=== PATIENT | female | born 1985 | race Caucasian/White ===

== ENCOUNTER → 2018-09-06 | Emergency (ER) | payer OTHER ==
[~2018-09-06] VITALS: Ht 157.5 cm; Wt 83.9 kg
[~2018-09-06] MED LIST: ACET1TAB43 PO; ACHD5005 PO; APNO TOP; DOCU100C37 PO; FERR325T18 PO; HYDR-34 PO; Ibuprofen PO; METO10TA3 PO; NF-ESOM40C PO; NFR150C PO; NITR-65 PO; PREN1TAB71 PO; PRM25T PO; RNT150T PO; SCR1T1 PO; SUCR1TAB PO
--- NOTE | 2018-09-06 14:15 | ED Lower Extremity ---
General Chief Complaint: Lower Extremity Stated Complaint: R CALF INJ Nursing Triage Note: pt presents to ed with complaints of r calf pain since injurying it yesterday at the [facility]. Pt reports hse has tried ice and elevation without relief. Nursing Sepsis Screen: No Definite Risk Source: patient Exam Limitations: no limitations History of Present Illness Date Seen by Provider: Sep 06, 2018 Time Seen by Provider: 14:10 Initial Comments To ER with reports of right calf pain since she injured it yesterday. She pushed off with the right foot to jump into a foam pit for her son's birthday green party. She initially felt a weird sensation and when she landed she had more discomfort, she thought maybe a charley horse. She has been able to walk but the pain intensifies when she pushes off with the right foot. She has run several half marathons and is training for a full marathon. She was seen at urgent care today who suggested the possibility of either a blood clot or compartment syndrome and referred her to the emergency room. She has no history of DVT, she has no exogenous estrogen use, she is very active and this pain occurred abruptly with injury, she is a nonsmoker. Onset: yesterday Severity: moderate Pain/Injury Location: right other (CALF) Method of Injury: other Modifying Factors: Improves With Movement Allergies and Home Medications Allergies Uncoded Allergies: BEE STINGS (Allergy, Severe, ANAPHYLACTIC, 07/05/10) Home Medications Acetaminophen with Codeine 1 Each Tablet, 1-2 TAB PO Q4H PRN for MODERATE TO SEVERE PAIN Prescribed by: VIRGILIO GUILLEN on 09/06/15 0853 Docusate Sodium 100 Mg Capsule, 100 MG PO BID Prescribed by: VIRGILIO GUILLEN on 09/06/15 0853 Ferrous Sulfate 325 Mg Tablet, 325 MG PO DAILY Prescribed by: VIRGILIO GUILLEN on 09/06/15 0853 Vit/Fe Fumarate/Fa 1 Each Tablet, 1 EACH PO DAILY, (Reported) Patient Home Medication List Home Medication List Reviewed: Yes Review of Systems Constitutional: see HPI EENTM: see HPI Respiratory: no symptoms reported Cardiovascular: no symptoms reported Genitourinary: no symptoms reported Musculoskeletal: see HPI Skin: no symptoms reported Past Ibmnyfo-Luegzs-Yhgubk Hx Patient Social History Alcohol Use: Denies Use Recreational Drug Use: No Smoking Status: Never a Smoker Recent Foreign Travel: No Contact w/Someone Who Travel: No Recent Infectious Disease Expo: No Physical Abuse: No Sexual Abuse: No Mistreated: No Fear: No Immunizations Up To Date Tetanus Booster (TDap): Less than 5yrs PED Vaccines UTD: No Date of Influenza Vaccine: May 04, 2015 Past Medical History Surgeries: No Respiratory: No Cardiac: No Neurological: Yes Reproductive Disorders: No Gastrointestinal: Yes Ulcer Musculoskeletal: No Endocrine: No Cancer: No Psychosocial: No Integumentary: No Blood Disorders: No Family Medical History Alcoholism 19 FATHER 19 MOTHER, Diabetes mellitus 19 MOTHER, (MGM) FH: lung cancer FHx: lung cancer Hypercholesterolemia 19 FATHER (father) Hypertension 19 FATHER (father) Lung c 19 MOTHER, No Family History of: AIDS Abdominal aortic aneurysm [place]'s disease Alzheimer's disease Aphasia Arthritis Asthma Cancer of mouth Cardiovascular disease Cataracts Colon cancer Completed stroke Congenital disease Congenital heart disease Coronary thrombosis Cystic fibrosis Deafness or hearing loss Dementia Drug abuse Dysphasia Fibrocystic disease of breast Gastroenteritis Glaucoma Headache disorder Infertility Kidney disease Myocardial infarction Neoplasm Not obtainable due to adoption Osteoporosis Parkinson's disease Prostate cancer Psychosocial problem Respiratory disorder Seizure disorder Severe allergy Thyroid disease Tuberculosis Visual disorder Cancer, Diabetes, Vascular Disease Physical Exam Vital Signs Vital Signs - First Documented 09/06/18 13:50 Temp 98.9 Pulse 70 Resp 16 B/P (MAP) 120/81 (94) Pulse Ox 99 Capillary Refill : Less Than 3 Seconds Height, Weight, BMI Height: 5'2.00" Weight: 185lbs. 2.0oz. [id number]; BMI Method:Stated General Appearance: WD/WN, no apparent distress HEENT: PERRL/EOMI, normal ENT inspection Neck: non-tender, full range of motion Respiratory: no respiratory distress, no accessory muscle use Gastrointestinal: normal bowel sounds, non tender Hips: bilateral hip non-tender, bilateral hip normal inspection, bilateral hip normal range of motion Legs: right leg other (there is tenderness and a firm palpable nodule to the MID posterior right calf. No ecchymosis. She is able to fully actively and passively dorsiflex and plantar flex the foot. She has strong dorsalis pedis pulse and no tingling or paresthesia of the foot. The pain increased with passive dorsiflexion is minimal. I do not suspect deep vein thrombosis given the mechanism of this injury nor do I suspect compartment syndrome based on clinical exam.) Knees: bilateral knee non-tender, bilateral knee normal inspection, bilateral knee normal range of motion Ankles: bilateral ankle non-tender, bilateral ankle normal inspection, bilateral ankle normal range of motion Feet: bilateral foot non-tender, bilateral foot normal inspection, bilateral foot normal range of motion Neurologic/Psychiatric: alert, normal mood/affect, oriented x 3 Skin: normal color, warm/dry Progress/Results/Core Measures Results/Orders Vital Signs/I&O 09/06/18 09/06/18 13:50 14:22 Temp 98.9 Pulse 70 87 Resp 16 16 B/P (MAP) 120/81 (94) 123/87 (99) Pulse Ox 99 98 Blood Pressure Mean: 94 Departure Communication (Admissions) I'll give her a walking boot to wear for 2 weeks, she may continue to stretch and do yoga as tolerated and she should stop for any significant pain. He agrees with this plan Impression Primary Impression: Gastrocnemius muscle tear Qualified Codes: S86.111A - Strain of other muscle(s) and tendon(s) of posterior muscle group at lower leg level, right leg, initial encounter Disposition: HOME, SELF-CARE Condition: Improved Departure-Patient Inst. Decision time for Depature: 14:14 Referrals: [facility] [place] (PCP) Primary Care Physician CLINTON BREWSTER DO (Family) Primary Care Physician Patient Instructions: Lower Extremity Muscle Strain Add. Discharge Instructions: 1. Ice to the area, Tylenol as needed for pain, elevate, you may continue to stretch and as long as this does not cause significant pain. The pain be her guide and an activity causes pain then stop. Wear the walking boot when you are up and about for about 2 weeks. Follow-up with your doctor later this week for recheck to ensure improvement. All discharge instructions reviewed with patient and/or family. Voiced understanding. CLARK PRICE APRN Sep 06, 2018 14:15
[2018-09-06 14:22] VITALS: BP 123/87
== END | disposition home or self-care (01) ==
LOC: EDUNIT# 13:21 → ER 13:23
DX: S86.111A Strain of other muscle(s) and tendon(s) of posterior muscle group at lower leg level, right leg, initial encounter (principal); Z80.1 Family history of malignant neoplasm of trachea, bronchus and lung; Z82.49 Family history of ischemic heart disease and other diseases of the circulatory system; Z87.19 Personal history of other diseases of the digestive system; W17.89XA Other fall from one level to another, initial encounter
CPT/HCPCS: 99283

== ENCOUNTER 2020-05-14 10:03 | Emergency (ER) | payer OTHER ==
[~2020-05-14] VITALS: Ht 157.4 cm; Wt 79.3 kg
--- NOTE | 2020-05-14 12:45 | ED General ---
General Stated Complaint: RECTAL BLEEDING Source of Information: Patient Exam Limitations: No Limitations History of Present Illness Date Seen by Provider: May 14, 2020 Time Seen by Provider: 12:40 Initial Comments This is a healthy-appearing 35-year-old female who presents to the ER with scant rectal bleeding after running this morning. States she has been having dark tarry stools over the past 2 days since she ate spicy food on Friday evening. States she has taken Pepto-Bismol and Tums Friday evening and this morning for GI discomfort, which did provide some improvement. Has a history of stomach ulcer 2 years ago and was treated successfully with Protonix. Denies fever, chills, headache, cough, nausea, vomiting, shortness of breath, diarrhea or constipation. Timing/Duration: 1-2 Days Severity: Mild Allergies and Home Medications Allergies Uncoded Allergies: BEE STINGS (Allergy, Severe, ANAPHYLACTIC, 07/05/10) Home Medications Acetaminophen with Codeine 1 Each Tablet, 1-2 TAB PO Q4H PRN for MODERATE TO SEVERE PAIN Prescribed by: VIRGILIO GUILLEN on 09/06/15 0853 Docusate Sodium 100 Mg Capsule, 100 MG PO BID Prescribed by: VIRGILIO GUILLEN on 09/06/15 0853 Ferrous Sulfate 325 Mg Tablet, 325 MG PO DAILY Prescribed by: VIRGILIO GUILLEN on 09/06/15 0853 Pantoprazole Sodium 20 Mg Tablet.dr, 20 MG PO DAILY Prescribed by: BRITTNI BAUER on 05/14/20 1332 Vit/Fe Fumarate/Fa 1 Each Tablet, 1 EACH PO DAILY, (Reported) Patient Home Medication List Home Medication List Reviewed: Yes Review of Systems Review of Systems Constitutional: no symptoms reported EENTM: no symptoms reported Respiratory: no symptoms reported Cardiovascular: no symptoms reported Gastrointestinal: see HPI Genitourinary: no symptoms reported Musculoskeletal: no symptoms reported Skin: no symptoms reported Psychiatric/Neurological: No Symptoms Reported Hematologic/Lymphatic: No Symptoms Reported Immunological/Allergic: no symptoms reported Past Hesaxgd-Uslyyf-Ricsck Hx Patient Social History Recent Foreign Travel: No Contact w/Someone Who Travel: No Immunizations Up To Date Tetanus Booster (TDap): Less than 5yrs PED Vaccines UTD: No Date of Influenza Vaccine: May 04, 2015 Past Medical History Surgeries: No Respiratory: No Cardiac: No Neurological: Yes Reproductive Disorders: No Gastrointestinal: Yes Ulcer Musculoskeletal: No Endocrine: No Cancer: No Psychosocial: No Integumentary: No Blood Disorders: No Family Medical History Alcoholism 19 FATHER 19 MOTHER, Diabetes mellitus 19 MOTHER, (MGM) FH: lung cancer FHx: lung cancer Hypercholesterolemia 19 FATHER (father) Hypertension 19 FATHER (father) Lung c 19 MOTHER, No Family History of: AIDS Abdominal aortic aneurysm [place]'s disease Alzheimer's disease Aphasia Arthritis Asthma Cancer of mouth Cardiovascular disease Cataracts Colon cancer Completed stroke Congenital disease Congenital heart disease Coronary thrombosis Cystic fibrosis Deafness or hearing loss Dementia Drug abuse Dysphasia Fibrocystic disease of breast Gastroenteritis Glaucoma Headache disorder Infertility Kidney disease Myocardial infarction Neoplasm Not obtainable due to adoption Osteoporosis Parkinson's disease Prostate cancer Psychosocial problem Respiratory disorder Seizure disorder Severe allergy Thyroid disease Tuberculosis Visual disorder Cancer, Diabetes, Vascular Disease Physical Exam Vital Signs Vital Signs - First Documented 05/14/20 12:14 Temp 37.1 Pulse 80 Resp 18 B/P (MAP) 130/98 (109) Pulse Ox 100 O2 Delivery Room Air Capillary Refill : Height, Weight, BMI Height: 5'2.00" Weight: 185lbs. 2.0oz. 83.037697tq; BMI Method:Stated General Appearance: No Apparent Distress, WD/WN HEENT: PERRL/EOMI, Pharynx Normal Neck: Full Range of Motion, Normal Inspection Respiratory: Chest Non Tender, Lungs Clear, Normal Breath Sounds, No Accessory Muscle Use Cardiovascular: Regular Rate, Rhythm, No Murmur, Normal Peripheral Pulses Gastrointestinal: Normal Bowel Sounds, Non Tender, Soft Rectal: Normal Rectal Tone, Heme Positive Stool, Hemorrhoids (Internal); No Tenderness Extremity: Normal Capillary Refill, Normal Range of Motion Neurologic/Psychiatric: Alert, Oriented x3, Normal Mood/Affect Skin: Normal Color, Warm/Dry Progress/Results/Core Measures Suspected Sepsis SIRS Temperature: Pulse: Respiratory Rate: Laboratory Tests 05/14/20 12:45: White Blood Count 10.7 Blood Pressure / Mean: Laboratory Tests 05/14/20 12:45: Creatinine 0.81, Platelet Count 291, Total Bilirubin 0.5 Results/Orders Lab Results Laboratory Tests Test 05/14/20 12:45 Range/Units White Blood Count 10.7 4.3-11.0 10^3/uL Red Blood Count 4.90 4.35-5.85 10^6/uL Hemoglobin 14.4 11.5-16.0 G/DL Hematocrit 42 35-52 % Mean Corpuscular Volume 86 80-99 FL Mean Corpuscular Hemoglobin 29 25-34 PG Mean Corpuscular Hemoglobin Concent 34 32-36 G/DL Red Cell Distribution Width 12.4 10.0-14.5 % Platelet Count 291 130-400 10^3/uL Mean Platelet Volume 11.1 H 7.4-10.4 FL Neutrophils (%) (Auto) 70 42-75 % Lymphocytes (%) (Auto) 23 12-44 % Monocytes (%) (Auto) 6 0-12 % Eosinophils (%) (Auto) 2 0-10 % Basophils (%) (Auto) 0 0-10 % Neutrophils # (Auto) 7.5 1.8-7.8 X 10^3 Lymphocytes # (Auto) 2.5 1.0-4.0 X 10^3 Monocytes # (Auto) 0.6 0.0-1.0 X 10^3 Eosinophils # (Auto) 0.2 0.0-0.3 10^3/uL Basophils # (Auto) 0.0 0.0-0.1 10^3/uL Sodium Level 138 135-145 MMOL/L Potassium Level 3.9 3.6-5.0 MMOL/L Chloride Level 105 98-107 MMOL/L Carbon Dioxide Level 22 21-32 MMOL/L Anion Gap 11 5-14 MMOL/L Blood Urea Nitrogen 11 7-18 MG/DL Creatinine 0.81 0.60-1.30 MG/DL Estimat Glomerular Filtration Rate > 60 BUN/Creatinine Ratio 14 Glucose Level 88 70-105 MG/DL Calcium Level 9.9 8.5-10.1 MG/DL Corrected Calcium 8.5-10.1 MG/DL Total Bilirubin 0.5 0.1-1.0 MG/DL Aspartate Amino Transf (AST/SGOT) 24 5-34 U/L Alanine Aminotransferase (ALT/SGPT) 18 0-55 U/L Alkaline Phosphatase 51 40-136 U/L Total Protein 8.0 6.4-8.2 GM/DL Albumin 4.8 H 3.2-4.5 GM/DL My Orders Orders - BRITTNI BAUER APRN Cbc With Automated Diff (05/14/20 12:13) Fecal Occult Bedside (05/14/20 12:13) Comprehensive Metabolic Panel (05/14/20 13:00) Vital Signs/I&O 05/14/20 05/14/20 12:14 13:37 Temp 37.1 37.1 Pulse 80 80 Resp 18 18 B/P (MAP) 130/98 (109) 130/98 (109) Pulse Ox 100 100 O2 Delivery Room Air Room Air Capillary Refill : Progress Note : Progress Note Labs reviewed and are unremarkable. Black stools are likely from Pepto-Bismol use. I did discuss having her keep an eye on this and to stop taking Pepto- Bismol. On digital rectal exam I did note internal hemorrhoid. This is likely the cause of her recent leonor blood. I discussed trying Protonix and to follow up with her PCP if symptoms persist after diet modifications and discontinued use of Pepto-Bismol. Reviewed POC and she is agreeable with plan. Departure Impression Primary Impression: Hemorrhoids Additional Impression: Gastritis Disposition: 01 HOME, SELF-CARE Condition: Stable Departure-Patient Inst. Decision time for Depature: 13:30 Referrals: [facility]/ (PCP) Primary Care Physician CLINTON BREWSTER DO (Family) Primary Care Physician Patient Instructions: Hemorrhoids, Gastritis (DC) Add. Discharge Instructions: Plan: 1. Discharge home. 2. Take Protonix daily as directed. Avoid spicy greasy foods and increase fiber. 3. Follow up with your primary care provider if your symptoms persist. 4. If you have hard stools you may take an over the counter stool softener or Miralax daily to keep stools soft. 4. Return for any new or concerning symptoms. Scripts Pantoprazole Sodium (Pantoprazole Sodium) 20 Mg Tablet. 20 MG PO DAILY for 10 Days, #10 TAB 0 Refills Prov: BRITTNI BAUER [employer]ARM RE[employer]TER 05/14/20 BRITTNI BAUER FARM RE[employer]TER May 14, 2020 12:45
[2020-05-14 12:58] LABS: BASOPHILS % (AUTO) 0 % (0-10); EOSINOPHILS # (AUTO) 0.2 10^3/uL (0.0-0.3); EOSINOPHILS % (AUTO) 2 % (0-10); HEMATOCRIT 42 % (35-52); HEMOGLOBIN 14.4 G/DL (11.5-16.0); LYMPHOCYTES # (AUTO) 2.5 X 10^3 (1.0-4.0); LYMPHOCYTES % (AUTO) 23 % (12-44); MEAN CORPUSCULAR HEMOGLOBIN 29 PG (25-34); MEAN CORPUSCULAR HGB CONC 34 G/DL (32-36); MEAN CORPUSCULAR VOLUME 86 FL (80-99); MEAN PLATELET VOLUME 11.1 FL (7.4-10.4); MONOCYTES # (AUTO) 0.6 X 10^3 (0.0-1.0); MONOCYTES % (AUTO) 6 % (0-12); NEUTROPHILS # (AUTO) 7.5 X 10^3 (1.8-7.8); NEUTROPHILS % (AUTO) 70 % (42-75); PLATELET COUNT 291 10^3/uL (130-400); WHITE BLOOD COUNT 10.7 10^3/uL (4.3-11.0)
[2020-05-14 13:07] LABS: ALBUMIN 4.8 GM/DL (3.2-4.5); CHLORIDE 105 MMOL/L (98-107); POTASSIUM 3.9 MMOL/L (3.6-5.0); SODIUM 138 MMOL/L (135-145)
[2020-05-14 13:08] LABS: CALCIUM 9.9 MG/DL (8.5-10.1)
[2020-05-14 13:09] LABS: GLUCOSE 88 MG/DL (70-105)
[2020-05-14 13:10] LABS: CARBON DIOXIDE 22 MMOL/L (21-32)
[2020-05-14 13:11] LABS: BILIRUBIN,TOTAL 0.5 MG/DL (0.1-1.0)
[2020-05-14 13:13] LABS: ALKALINE PHOSPHATASE 51 U/L (40-136); CREATININE SERUM 0.81 MG/DL (0.60-1.30); GFR ESTIMATED > 60
[2020-05-14 13:14] LABS: BUN/CREATININE RATIO 14
[2020-05-14 13:16] LABS: ALANINE AMINOTRANSFERASE 18 U/L (0-55)
[2020-05-14] MEDS ORDERED: PANT20TA18 PO (13:32)
[2020-05-14 13:37] VITALS: BP 130/98
== END 2020-05-14 13:37 | disposition home or self-care (01) ==
LOC: EDUNIT# 10:03 → ER 10:04
DX: K64.8 Other hemorrhoids (principal); K29.70 Gastritis, unspecified, without bleeding; Z91.030 Bee allergy status; Z82.49 Family history of ischemic heart disease and other diseases of the circulatory system; Z80.1 Family history of malignant neoplasm of trachea, bronchus and lung
CPT/HCPCS: 36415; 80053; 82274; 85025

== ENCOUNTER 2022-09-05 11:35 | Emergency (ER) | payer OTHER ==
[~2022-09-05] VITALS: Ht 157 cm; Wt 84.0 kg
[~2022-09-05 11:35] MED LIST changes: +ACET-11 PO; -ACET1TAB43 PO; +PANT20TA18 PO
--- NOTE | 2022-09-05 11:59 | ED Respiratory ---
General Chief Complaint: Respiratory Problems Stated Complaint: PNEUMONIA Source: patient Exam Limitations: no limitations History of Present Illness Date Seen by Provider: Sep 05, 2022 Time Seen by Provider: 11:40 Initial Comments Patient is a 37-year-old female who presents to the emergency department for evaluation of shortness of air and chest pain. Patient was seen at an urgent care on 09/02 and diagnosed clinically with pneumonia for which she was given a prescription for amoxicillin and azithromycin. She states she presented to the clinic with a productive cough for 24 to 48 hours prior to presentation. She states she has not had a fever at any point during her illness. She reports she was tested for flu and COVID and both of these were noted to be negative at the urgent care visit on 09/02. She states she returned on 09/03 as she felt her symptoms were not improving and she was given a "steroid shot". She states she is continue to have persistent productive cough and feels like today she has having significantly increased shortness of air and persistent mid chest pain. She denies any history of significant heart or lung problems. Denies any history of clotting disorders. She states that she is currently on her menses. She has also been taking an albuterol inhaler as needed prescribed by the urgent care provider. Allergies and Home Medications Allergies Uncoded Allergies: BEE STINGS (Allergy, Severe, ANAPHYLACTIC, 07/05/10) Patient Home Medication List Home Medication List Reviewed: Yes Acetaminophen with Codeine (Acetaminophen-Cod #3 Tablet) 1 Each Tablet, 1-2 TAB PO Q4H PRN for MODERATE TO SEVERE PAIN Prescribed by: VIRGILIO GUILLEN on 09/06/15 0853 Docusate Sodium (Docusate Sodium) 100 Mg Capsule, 100 MG PO BID Prescribed by: VIRGILIO GUILLEN on 09/06/15 0853 Ferrous Sulfate (Ferrous Sulfate) 325 Mg Tablet, 325 MG PO DAILY Prescribed by: VIRGILIO GUILLEN on 09/06/15 0853 Pantoprazole Sodium (Pantoprazole Sodium) 20 Mg Tablet.dr, 20 MG PO DAILY Prescribed by: BRITTNI BAUER on 05/14/20 1332 Prednisone (Prednisone) 10 Mg Tab.ds.pk, 10 MG PO DAILY Prescribed by: Adán Hicks on 09/05/22 1244 Vit/Fe Fumarate/Fa ( Vitamin Tablet) 1 Each Tablet, 1 EACH PO DAILY, (Reported) Entered as Reported by: ENRICO PÉREZ on 03/31/14 0447 Review of Systems Review of Systems Constitutional: no symptoms reported EENTM: no symptoms reported Respiratory: see HPI, cough, short of breath Cardiovascular: see HPI, chest pain Gastrointestinal: no symptoms reported Genitourinary: no symptoms reported Musculoskeletal: no symptoms reported Skin: no symptoms reported Psychiatric/Neurological: No Symptoms Reported Hematologic/Lymphatic: No Symptoms Reported Immunological/Allergic: no symptoms reported Past Kmhtkrn-[id number]-[id number] Hx Immunizations Up To Date Tetanus Booster (TDap): Less than 5yrs PED Vaccines UTD: No Past Medical History Surgeries: No Respiratory: No Cardiac: No Neurological: Yes Reproductive Disorders: No Gastrointestinal: Yes Ulcer Musculoskeletal: No Endocrine: No Cancer: No Psychosocial: No Integumentary: No Blood Disorders: No Family Medical History Alcoholism 19 FATHER 19 MOTHER, Diabetes mellitus 19 MOTHER, (MGM) FH: lung cancer FHx: lung cancer Hypercholesterolemia 19 FATHER (father) Hypertension 19 FATHER (father) Lung c 19 MOTHER, No Family History of: AIDS Abdominal aortic aneurysm Paul's disease Alzheimer's disease Aphasia Arthritis Asthma Cancer of mouth Cardiovascular disease Cataracts Colon cancer Completed stroke Congenital disease Congenital heart disease Coronary thrombosis Cystic fibrosis Deafness or hearing loss Dementia Drug abuse Dysphasia Fibrocystic disease of breast Gastroenteritis Glaucoma Headache disorder Infertility Kidney disease Myocardial infarction Neoplasm Not obtainable due to adoption Osteoporosis Parkinson's disease Prostate cancer Psychosocial problem Respiratory disorder Seizure disorder Severe allergy Thyroid disease Tuberculosis Visual disorder Cancer, Diabetes, Vascular Disease Physical Exam Vital Signs - First Documented 09/05/22 09/05/22 11:35 11:48 Temp 36.0 Pulse 78 Resp 25 B/P (MAP) 144/100 (115) Pulse Ox 97 O2 Delivery Room Air Capillary Refill : Height: 5'2.00" Weight: 185lbs. 2.0oz. [id number]; 32.00 BMI Method:Stated General Appearance: WD/WN, no apparent distress HEENT: PERRL/EOMI, normal ENT inspection, TMs normal, pharynx normal Neck: non-tender, full range of motion, supple, normal inspection Respiratory: chest non-tender, lungs clear, normal breath sounds, no respi ratory distress, no accessory muscle use Cardiovascular: regular rate, rhythm Gastrointestinal: normal bowel sounds, non tender, soft Extremities: normal range of motion, non-tender Neurologic/Psychiatric: no motor/sensory deficits, alert, normal mood/affect, oriented x 3 Skin: normal color, warm/dry Progress/Results/Core Measures Suspected Sepsis SIRS Temperature: Pulse: Respiratory Rate: Laboratory Tests 09/05/22 11:45: White Blood Count 11.2H Blood Pressure / Mean: Laboratory Tests 09/05/22 11:45: Creatinine 0.80, INR Comment 0.9, Platelet Count 351, Total Bilirubin 0.4 Results/Orders Lab Results Laboratory Tests Test 09/05/22 11:45 Range/Units White Blood Count 11.2 H 4.3-11.0 10^3/uL Red Blood Count 5.51 H 3.80-5.11 10^6/uL Hemoglobin 15.8 11.5-16.0 g/dL Hematocrit 47 35-52 % Mean Corpuscular Volume 85 80-99 fL Mean Corpuscular Hemoglobin 29 25-34 pg Mean Corpuscular Hemoglobin Concent 34 32-36 g/dL Red Cell Distribution Width 12.2 10.0-14.5 % Platelet Count 351 130-400 10^3/uL Mean Platelet Volume 11.1 9.0-12.2 fL Immature Granulocyte % (Auto) 0 % Neutrophils (%) (Auto) 58 42-75 % Lymphocytes (%) (Auto) 36 12-44 % Monocytes (%) (Auto) 5 0-12 % Eosinophils (%) (Auto) 0 0-10 % Basophils (%) (Auto) 0 0-10 % Neutrophils # (Auto) 6.5 1.8-7.8 X 10^3 Lymphocytes # (Auto) 4.1 H 1.0-4.0 X 10^3 Monocytes # (Auto) 0.6 0.0-1.0 X 10^3 Eosinophils # (Auto) 0.0 0.0-0.3 10^3/uL Basophils # (Auto) 0.0 0.0-0.1 10^3/uL Immature Granulocyte # (Auto) 0.0 0.0-0.1 10^3/uL Prothrombin Time 12.6 12.2-14.7 SEC INR Comment 0.9 0.8-1.4 Activated Partial Thromboplast Time 27 24-35 SEC D-Dimer <= 0.27 0.00-0.49 UG/ML Sodium Level 140 135-145 MMOL/L Potassium Level 3.4 L 3.6-5.0 MMOL/L Chloride Level 105 98-107 MMOL/L Carbon Dioxide Level 23 21-32 MMOL/L Anion Gap 12 5-14 MMOL/L Blood Urea Nitrogen 9 7-18 MG/DL Creatinine 0.80 0.60-1.30 MG/DL Estimat Glomerular Filtration Rate 97 BUN/Creatinine Ratio 11 Glucose Level 83 70-105 MG/DL Calcium Level 9.7 8.5-10.1 MG/DL Corrected Calcium 8.5-10.1 MG/DL Magnesium Level 1.8 1.6-2.4 MG/DL Total Bilirubin 0.4 0.1-1.0 MG/DL Aspartate Amino Transf (AST/SGOT) 21 5-34 U/L Alanine Aminotransferase (ALT/SGPT) 23 0-55 U/L Alkaline Phosphatase 47 40-136 U/L Troponin I < 0.028 <0.028 NG/ML Total Protein 8.5 H 6.4-8.2 GM/DL Albumin 4.7 H 3.2-4.5 GM/DL My Orders Orders - ADÁN HICKS SIZER MACHINE Cbc With Automated Diff (09/05/22 11:49) Magnesium (09/05/22 11:49) Chest 1 View, Ap/Pa Only (09/05/22 11:49) Ekg Tracing (09/05/22 11:49) Comprehensive Metabolic Panel (09/05/22 11:49) Protime With Inr (09/05/22 11:49) Partial Thromboplastin Time (09/05/22 11:49) O2 (09/05/22 11:49) Monitor-Rhythm Ecg Trace Only (09/05/22 11:49) Ed Iv/Invasive Line Start (09/05/22 11:49) Fibrin Degradation Products (09/05/22 11:49) Troponin I Jenny (09/05/22 11:49) Vital Signs/I&O 09/05/22 09/05/22 11:35 11:48 Temp 36.0 Pulse 78 Resp 25 B/P (MAP) 144/100 (115) Pulse Ox 97 O2 Delivery Room Air Room Air Capillary Refill : Progress Note : Progress Note Patient is nontoxic and well-hydrated on exam. Vital signs are very reassuring without hypoxia, hypotension, tachycardia, or fever. Her oxygen saturations are 97 to 100% on room air. No obvious adventitious lung sounds or increased work of breathing noted on exam. She does appear very anxious and is hyperventilating. Her peripheral pulses are strong and regular. A wet cough is noted intermittently during my exam. Orders were placed for CBC, CMP, magnesium, troponin, coagulation studies, and D-dimer. Chest x-ray was also ordered along with an EKG. Pretest probability for pulmonary embolus is low however we will obtain the D-dimer for further diagnostic clarity. CBC is largely unremarkable other than very mild leukocytosis that is very likely related to her recent steroid injection. CMP is unremarkable. Troponin is negative. Coagulation studies all within normal limits. D-dimer is negative. Chest x-ray reveals no acute abnormality on my wet read. Formal radiology report agrees no acute findings are noted. EKG reveals no ischemic changes or arrhythmia. Patient very well may have had a viral respiratory infection that has been causing her symptoms from the beginning. With no fever at any point during illness and no residual infiltrate noted on x-ray, community-acquired pneumonia appears less likely. Patient was counseled to continue the antibiotics as prescribed until they are completed. There appears to be no emergent cardiac or pulmonary etiology of patient's symptoms. We discussed possible etiologies could be pleurisy, costochondritis, or chest wall musculoskeletal pain. Patient does not have any focal tenderness to palpation. Patient was given an IV dose of ketorolac for chest wall pain. Patient endorses a history of ulcer and prefers to not take prolonged doses of NSAIDs. Due to this she will be given a short prednisone taper to help with any inflammatory pain. Will discharge home with recommendations for supportive care. Follow-up with PCP. Return precautions for urgent symptomology discussed. Patient verbalized u nderstanding. ECG EKG : EKG Time: 11:55 Rate: 70 Rhythm: Normal Sinus Intervals: Normal ECG Comparisson: No Previous ECG Available ECG Impression: Normal Departure Impression Primary Impression: Atypical chest pain Additional Impression: Respiratory infection Disposition: 01 HOME, SELF-CARE Condition: Stable Departure-Patient Inst. Decision time for Depature: 12:40 Referrals: [facility]/JENNIFER (PCP) Primary Care Physician CLINTON BREWSTER DO (Family) Primary Care Physician Patient Instructions: Chest Pain, Adult ED Scripts Dextromethorphan Polistirex (Dextromethorphan Polistirex) 30 Mg/5 Ml Sofía.er.12h 60 MG PO Q12H PRN for COUGH for 5 Days, #100 ML 0 Refills Prov: ADÁN HICKS APRN 09/05/22 Prednisone (Prednisone) 10 Mg Tab.ds.pk 10 MG PO DAILY, #21 EA Take 6 tabs(60mg)daily,decrease by 1 tab(10MG)daily. Prov: ADÁN HICKS APRN 09/05/22 ADÁN HICKS APRN Sep 05, 2022 11:59
[2022-09-05 12:01] LABS: BASOPHILS % (AUTO) 0 % (0-10); EOSINOPHILS % (AUTO) 0 % (0-10); HEMATOCRIT 47 % (35-52); HEMOGLOBIN 15.8 g/dL (11.5-16.0); LYMPHOCYTES # (AUTO) 4.1 X 10^3 (1.0-4.0); LYMPHOCYTES % (AUTO) 36 % (12-44); MEAN CORPUSCULAR HEMOGLOBIN 29 pg (25-34); MEAN CORPUSCULAR HGB CONC 34 g/dL (32-36); MEAN CORPUSCULAR VOLUME 85 fL (80-99); MEAN PLATELET VOLUME 11.1 fL (9.0-12.2); MONOCYTES # (AUTO) 0.6 X 10^3 (0.0-1.0); MONOCYTES % (AUTO) 5 % (0-12); NEUTROPHILS # (AUTO) 6.5 X 10^3 (1.8-7.8); NEUTROPHILS % (AUTO) 58 % (42-75); PLATELET COUNT 351 10^3/uL (130-400); WHITE BLOOD COUNT 11.2 10^3/uL (4.3-11.0)
[2022-09-05 12:09] LABS: ALBUMIN 4.7 GM/DL (3.2-4.5); CHLORIDE 105 MMOL/L (98-107); POTASSIUM 3.4 MMOL/L (3.6-5.0); SODIUM 140 MMOL/L (135-145)
[2022-09-05 12:11] LABS: CALCIUM 9.7 MG/DL (8.5-10.1)
[2022-09-05 12:12] LABS: GLUCOSE 83 MG/DL (70-105); TOTAL PROTEIN 8.5 GM/DL (6.4-8.2)
--- NOTE | 2022-09-05 12:12 | Diagnostic Imaging Report ---
INDICATION: Shortness of air. TIME OF EXAM: 11:51 a.m. No prior studies are available for comparison. FINDINGS: The heart size is normal. There is a calcified nodule in the right base suggestive of a granuloma. No infiltrates are seen. There is no effusion or pneumothorax. IMPRESSION: No acute cardiopulmonary process is detected. Dictated by: Dictated on workstation # [id number]
[2022-09-05 12:13] LABS: CARBON DIOXIDE 23 MMOL/L (21-32)
[2022-09-05 12:14] LABS: BILIRUBIN,TOTAL 0.4 MG/DL (0.1-1.0)
[2022-09-05 12:15] LABS: ALKALINE PHOSPHATASE 47 U/L (40-136); GFR ESTIMATED 97
[2022-09-05 12:16] LABS: BUN/CREATININE RATIO 11
[2022-09-05 12:18] LABS: ALANINE AMINOTRANSFERASE 23 U/L (0-55); INR 0.9 (0.8-1.4); MAGNESIUM 1.8 MG/DL (1.6-2.4); PROTHROMBIN TIME PATIENT 12.6 SEC (12.2-14.7)
[2022-09-05] MEDS ORDERED: PRED10TA22 PO (12:44)
[2022-09-05] MEDS ORDERED: KETOROLAC 15 MG/ML VIAL IVP ONE (12:45)
[2022-09-05] MEDS ORDERED: DEXT30SU19 PO (12:46)
[2022-09-05 13:07] VITALS: BP 118/81
== END 2022-09-05 13:10 | disposition home or self-care (01) ==
LOC: EDUNIT# 11:44 → ER 11:48
DX: J98.8 Other specified respiratory disorders (principal); J18.9 Pneumonia, unspecified organism; R09.02 Hypoxemia; R03.1 Nonspecific low blood-pressure reading
CPT/HCPCS: 36415; 71045; 80053; 83735; 84484; 85025; 85379; 85610; 85730; 93005; 93041